=== PATIENT | male | born 1950 | race Caucasian/White ===

== ENCOUNTER → 2017-11-20 | Outpatient (CLI) | payer OTHER ==
[~2017-11-20] MED LIST: ASPEC325 PO; CHOL100010 PO; CLB200 PO; OPTIRAY 320 IV PRN
--- NOTE | 2017-11-20 14:37 | DIAGNOSTIC IMAGING REPORT ---
ABDOMEN AND PELVIS CT WITH IV AND ORAL CONTRAST CT DOSE: 919.69 mGycm HISTORY: Acute palpable abnormality of the left groin with concern for mass or hernia. PELVIC MASS TECHNIQUE: Multiaxial CT images of the abdomen and pelvis were performed following the use of intravenous and oral contrast. A dose lowering technique was utilized adhering to the principles of ALARA. COMPARISON STUDY: None available FINDINGS: Mild subsegmental bibasilar atelectasis. There is no pneumatosis or pneumoperitoneum. Imaged inferior cardiac chambers are unremarkable. There are multiple hypodense lesions about the liver, most of which are subcentimeter, largest of which measures 1.5 cm within the right hepatic lobe suggesting probable hepatic cysts. Liver is otherwise unremarkable. The gallbladder is mildly contracted. Spleen, pancreas and adrenal glands are unremarkable. Mild nonspecific perinephric stranding bilaterally with subsegmental hypodense lesions suggesting renal cysts. No renal calculi or obstructive uropathy. Pelvic structures are suboptimally evaluated secondary to obscuring streak artifact from right hip arthroplasty. Prostamegaly with central coarse prostatic calcifications. Moderate left internal hernia contains mesenteric fat and nonobstructed loop of proximal sigmoid colon. Calcification of the aorta without aneurysm. IVC appears unremarkable. Retroaortic left renal vein. No pathologically enlarged lymph nodes identified. Lipoma of the left Psoas muscle measures up to 1.4 cm transversely. No bowel obstruction or focal bowel wall thickening. Minimal colonic diverticulosis without diverticulitis. Terminal ileum is unremarkable. The appendix is not definitively seen. No secondary signs of acute appendicitis. Ill-defined superficial subcutaneous lesion about the right lateral mid abdominal wall measures 1.2 cm. With additional similar-appearing foci seen along the lower subcutaneous abdomen, possibly reflecting areas of prior medicinal injection site. Right hip arthroplasty with satisfactory alignment. Degenerative changes of the pelvis and lumbar spine. Multilevel intervertebral disc space narrowing with spondylitic spurring and facet arthropathy. Mild levoscoliosis of the upper lumbar spine. IMPRESSION: 1. Moderate-sized left inguinal hernia contains both mesenteric fat and nonobstructed loop of proximal sigmoid colon. 2. No bowel obstruction or focal bowel wall thickening. 3. Minimal colonic diverticulosis without diverticulitis. 4. Mild prostamegaly. 5. Additional findings as above. Electronically signed by: Hipolito Du M.D. 11/20/2017 2:36 PM Dictated Date/Time: 11/20/2017 2:29 PM
== END | disposition home or self-care (01) ==
LOC: C.CTS 11:57
PROVIDERS: ATTEND Physician Assistant
DX: K40.90 Unilateral inguinal hernia, without obstruction or gangrene, not specified as recurrent (principal)

== ENCOUNTER → 2017-11-26 | Outpatient (CLI) | payer OTHER ==
[~2017-11-26] MED LIST changes: -OPTIRAY 320 IV PRN
--- NOTE | 2017-11-27 18:49 | ECHOCARDIOGRAM REPORT ---
*NOTICE TO RECEIVING CONSTITUTION PARTY AGENCY This information is strictly Confidential and protected under [place] law. [place] law prohibits you from making any further disclosure of this information unless further disclosure is expressly permitted by the written consent of the person to whom it pertains or is authorized by law. A general authorization for the release of medical or other information is not sufficient for this purpose. Hospital accepts no responsibility if the information is made available to any other person, INCLUDING THE PATIENT. Interpretation Summary * Name: KVNG DRIVER Study Date: 11/26/2017 01:01 PM BP: 136/71 mmHg * Patient Location: [facility] HR: 79 * : 1950 (M/d/yyyy) Gender: Male Height: 71 in * Age: 67 yrs Ethnicity: [place] Weight: 206 lb * Ordering Physician: Tatiana Espino * Referring Physician: Tatiana Espino PA-C * Performed By: Anupam Rodriguez RCS * * Reason For Study: Murmur * BSA: 2.1 m2 * -- Conclusions -- * 1. Mildly dilated left ventricle with normal systolic function. EF 55-60%. No regional wall motion abnormalities. No left ventricular hypertrophy. No significant diastolic dysfunction suggested. * 2. The right ventricle is mildly dilated. The right ventricular systolic function is normal as assessed by tricuspid annular plane systolic excursion (TAPSE) (normal >1.5 cm). * 3. Mild biatrial dilation. * 4. No significant valvular abnormalities visualized. * 5. Normal estimated right ventricular systolic pressure. * 6. No prior study available for comparison. Procedure Details * A complete two-dimensional transthoracic echocardiogram was performed (2D, M-mode, Doppler and color flow Doppler). Left Ventricle * Mildly dilated left ventricle with normal systolic function. EF 55-60%. No regional wall motion abnormalities. No left ventricular hypertrophy. No significant diastolic dysfunction suggested. Right Ventricle * The right ventricle is mildly dilated. * The right ventricular systolic function is normal as assessed by tricuspid annular plane systolic excursion (TAPSE) (normal >1.5 cm). Atria * The left atrium is mildly dilated. * The right atrium is mildly dilated. * There is no evidence of atrial septal defect, but resolution does not allow assessment for a patent foramen ovale. Mitral Valve * The mitral valve is grossly normal. * There is no mitral valve stenosis. * There is trace mitral regurgitation. Tricuspid Valve * The tricuspid valve is not well visualized, but is grossly normal. * There is no tricuspid stenosis. * There is mild tricuspid regurgitation. Aortic Valve * The aortic valve is trileaflet. * No hemodynamically significant valvular aortic stenosis. * No aortic regurgitation is present. Pulmonic Valve * The pulmonary valve is inadequately visualized, but the Doppler data is adequate for interpretation. * There is no pulmonic valvular stenosis. * There is no significant pulmonary regurgitation. Great Vessels * The aortic root is normal size. * Ascending aorta of normal dimension Pericardium/Pleural * There is no pericardial effusion. Great Vessels * Normal inferior vena cava size and collapsability with sniff indicates a normal right atrial pressure of 3 mmHg MMode 2D Measurements and Calculations IVSd 1.1 cm IVSs 1.4 cm LVIDd 5.5 cm LVIDs 3.9 cm LVPWd 1.0 cm LVPWs 1.4 cm IVS/LVPW 1.1 FS 29.3 % EDV(Teich) 144.5 ml ESV(Teich) 64.1 ml EF(Teich) 55.7 % EDV(cubed) 162.1 ml ESV(cubed) 57.3 ml EF(cubed) 64.7 % % IVS thick 23.3 % % LVPW thick 32.8 % LV mass(C)d 236.4 grams LV mass(C)dI 110.7 grams/m\S\2 LV mass(C)s 197.4 grams LV mass(C)sI 92.5 grams/m\S\2 SV(Teich) 80.4 ml SI(Teich) 37.7 ml/m\S\2 SV(cubed) 104.8 ml SI(cubed) 49.1 ml/m\S\2 Ao root diam 3.8 cm Ao root area 11.3 cm\S\2 ACS 1.6 cm LA dimension 3.6 cm asc Aorta Diam 2.8 cm LA/Ao 0.95 LVAd ap4 28.8 cm\S\2 LVLd ap4 7.7 cm EDV(MOD-sp4) 90.8 ml EDV(sp4-el) 92.1 ml LVAs ap4 17.2 cm\S\2 LVLs ap4 6.8 cm ESV(MOD-sp4) 41.3 ml ESV(sp4-el) 36.8 ml EF(MOD-sp4) 54.5 % EF(sp4-el) 60.0 % SV(MOD-sp4) 49.5 ml SI(MOD-sp4) 23.2 ml/m\S\2 SV(sp4-el) 55.3 ml SI(sp4-el) 25.9 ml/m\S\2 Doppler Measurements and Calculations MV E max taqueria 78.9 cm/sec MV A max taqueria 75.5 cm/sec MV E/A 1.0 MV P1/2t max taqueria 87.1 cm/sec MV P1/2t 73.0 msec MVA(P1/2t) 3.0 cm\S\2 MV dec slope 349.9 cm/sec\S\2 MV dec time 0.25 sec Ao V2 max 169.5 cm/sec Ao max PG 11.5 mmHg Ao max PG (full) 6.8 mmHg LV V1 max PG 4.7 mmHg LV V1 max 108.8 cm/sec PA V2 max 117.5 cm/sec PA max PG 5.6 mmHg TR max taqueria 264.0 cm/sec RVSP(TR) 30.9 mmHg RAP systole 3.0 mmHg
== END | disposition home or self-care (01) ==
LOC: C.CPL 12:59
PROVIDERS: ATTEND Physician Assistant
DX: R01.1 Cardiac murmur, unspecified (principal)